=== PATIENT | female | born 1975 | race Caucasian/White ===

== ENCOUNTER 2025-04-30 13:51 | Outpatient (AMB) | payer MEDICAID, SELFPAY ==
--- NOTE | 2025-04-30 14:07 | AMB.GYNCLNOT ---
Vital Signs 04/30/25 14:08 Height 1.5 m Height Method Stated Weight 77.111 kg Weight Measurement Method Standing Scale BMI 34.3 BP 121/80 Blood Pressure Source Automatic Cuff Blood Pressure Location Right Upper Arm Position Sitting Respiration 18 Pulse 67 Pulse Source Monitor Temp 98.7 F Temp Source Temporal Artery Scan Pulse Oximetry (%) 97 Oxygen Delivery Method Room Air Allergies/Home Meds Allergies & Medications Allergies No Known Allergies Allergy (Verified 04/30/25 14:08) Medication Reconciliation No Known Home Medications 04/30/25 [History Confirmed 04/30/25] Intake Visit Data Collection New Patient or Established: New Patient (never been to [facility]) 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 Seen by Clinical Staff ONLY (RN/MA): No Director Of Strategic Sourcing Required: No Do You Feel Safe at Home: Yes Authorities Contacted: N/A PCP or OBGYN visit in last 3 months: No Hx Now: No Are you currently on any form of Control: No Last menstrual period: 02/20/25 Pain Present Currently: No Pain Scale Used: Garcia-Kerr/Numerical Pain scale:: 0 Smoking Status Smoking Status: Never smoker Immunizations Flu Vaccine in the Last 12 Months: No Flu Vaccine Exclusion Criteria: No Exclusion Criteria 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 1. Little interest or pleasure in doing things: not at all 2. Feeling down, depressed, or hopeless: not at all Total score: 0 PHQ-9 3. Trouble falling or staying asleep, or sleeping too much: Not at all 4. Feeling tired or having little energy: Not at all 5. Poor appetite or overeating: Not at all 6. Feeling bad about yourself - or that you are a failure or have let yourself or your family down: Not at all 7. Trouble concentrating on things, such as reading the newspaper or watching television: Not at all 8. Moving or speaking so slowly that other people could have noticed? - Or the opposite - being so fidgety or restless that you have been moving around a lot more than usual: not at all 9. Thoughts that you would be better off or of hurting yourself in some way: Not at all Total score: 0 If you checked off any problems, how difficult have these problems made it for you to do your work, take care of things at home, or get along with other people?: not difficult at all Source: Developed by Drs. Blair Braden, Kaylee Chapman, Perez Ventura and colleagues, with an educational jessie from [employer]. 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 Patient was referred by her primary care and [facility]. Patient is seen at that clinic for chronic hypertension. She takes lisinopril 10 mg daily. She also is taking Provera to help with heavy periods. Her previous MANAGER FIELD SALES Dr. Camp has been managing her heavy menses. Patient denies social habits. And she denies surgeries. She states that she had a abnormal Pap 8 years ago but since then they have been normal. She has no interval MANAGER FIELD SALES complaints Review of Systems Review of Systems Systems Reviewed: All systems reviewed, normal except as documented Exam Narrative Physical exam: Euthyroid. Both breasts soft symmetrical. No skin changes no masses palpated no nipple discharge. Abdomen is soft and nontender. No masses palpated. Perineum is clean no lesions noted. Vagina pink no abnormal discharge noted parous cervix with no inflammation and no lesions. Uterus normal size and shape mobile and nontender and adnexa was normal no masses palpated Office Procedures OBC Clinic LOC & Office Proc's Nursing/Assessment Patient Status: Initial/New Patient OB Clinic Nursing Assessment: Medication Reconciliation, Update PMH in EMR and Vital Signs OB Clinic Coordination of Care: Complex Care and Chronic Disease 1-5, Education Complex Pt/Fam, Consent,records obtained, informed consent, Lab and Imaging orders, Results/Orders obtained and Staff clarify orders Miscellaneous Interventions: Pelvic/Pap Smear Set up New Patient Charge New Patient Point Assignment: 1129 New Patient Point Charge: SILVER DESIGNER Level 4 ([id number]) In Clinic Bedside tests/procedures Pap Smear: Yes Assessment & Plan Diagnosis / Problem List (1) Encounter for Papanicolaou smear of vagina as part of routine gynecological examination: Status: Acute Plan Pap smear today. Discussed self breast exam. And diet regular exercise. Patient will follow-up with her primary care to manage her high blood pressure. And she is also going to follow-up with Dr. Camp for management of her heavy menses with Provera. Additional Plan Follow Up: 5 Years (pap) COUNTERINTELLIGENCE/HUMINT SPECIALIST: Papsmear Pap Smear Procedure Pre-op diagnosis general: pap smear Post-op diagnosis procedure note: Same Chaparone in room during procedure?: No Procedure position: lithotomy (dorsal lithotomy) Speculum inserted, cervix visualized: Yes (Parous cervix. No lesions noted no discharge or abnormality. Uterus is no) Cervical appearance: normal Collection method: broom type device Specimen placed in liquid-based cytology medium: Yes (labeled) Complications: No Patient tolerated procedure well: Yes Follow up pending results: phone call Procedure Notes:: Patient tolerated procedure well. No complaints of pain during the procedure. No abnormal bleeding Papsmear completed: yes
[2025-04-30 14:08] VITALS: BP 121/80; PULSE 67; RESP 18; TEMP 37.1; O2SAT 97; BMI 34.3
== END 2025-04-30 14:42 | disposition home or self-care (01) ==
LOC: HODSOBC 13:51
PROVIDERS: Supervising Provider Advanced Practice Midwife; Visit Provider Advanced Practice Midwife
DX: Z01.419 Encounter for gynecological examination (general) (routine) without abnormal findings (principal)
CPT/HCPCS: 99204; Q0091; G0463

== ENCOUNTER 2025-05-15 14:10 | Outpatient (AMB) | payer MEDICAID, SELFPAY ==
--- NOTE | 2025-05-15 14:56 | AMB.GYNCLNOT ---
Vital Signs 05/15/25 14:58 Height 1.5 m Height Method Stated Weight 77.564 kg Weight Measurement Method Standing Scale BMI 34.4 BP 139/85 H Blood Pressure Source Automatic Cuff Blood Pressure Location Left Upper Arm Position Sitting Respiration 14 Pulse 61 Pulse Source Monitor Temp 97.9 F Temp Source Oral Pulse Oximetry (%) 96 Oxygen Delivery Method Room Air Allergies/Home Meds Allergies & Medications Allergies No Known Allergies Allergy (Verified 05/15/25 14:59) Medication Reconciliation medroxyprogesterone 10 mg tablet 10 mg PO QDAY 14 days #14 tabs 05/15/25 [Rx] Intake Visit Data Collection New Patient or Established: Established Patient (seen at [facility] within 3 years) Reason for Visit:: PROVERA FOLLOW UP Consent obtained for Telemed Visit: No Seen by Clinical Staff ONLY (RN/MA): No [employer] Required: No Do You Feel Safe at Home: Yes Authorities Contacted: N/A PCP or OBGYN visit in last 3 months: Yes Hx Now: No Are you currently on any form of Control: Yes Last menstrual period: 05/08/25 Pain Present Currently: No Pain Scale Used: Garcia-Kerr/Numerical Pain scale:: 0 Smoking Status Smoking Status: Never smoker Immunizations Flu Vaccine in the Last 12 Months: Yes Flu Vaccine Exclusion Criteria: Already Received 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 1. Little interest or pleasure in doing things: not at all 2. Feeling down, depressed, or hopeless: not at all Total score: 0 PHQ-9 3. Trouble falling or staying asleep, or sleeping too much: Not at all 4. Feeling tired or having little energy: Not at all 5. Poor appetite or overeating: Not at all 6. Feeling bad about yourself - or that you are a failure or have let yourself or your family down: Not at all 7. Trouble concentrating on things, such as reading the newspaper or watching television: Not at all 8. Moving or speaking so slowly that other people could have noticed? - Or the opposite - being so fidgety or restless that you have been moving around a lot more than usual: not at all 9. Thoughts that you would be better off or of hurting yourself in some way: Not at all Total score: 0 Source: Developed by Drs. Blair Braden, Kaylee Chapman, Perez Ventura and colleagues, with an educational jessie from [employer]. Depression screen completed yes Social History Living Situation History Lives With: Family Housing: House Tobacco History Smoking Status: Never smoker Second Hand Smoke Exposure: No Alcohol History Alcohol Intake: Never Domestic Abuse History Do You Feel Safe at Home: Yes History of Present Illness HPI Narrative 49 years old on cyclic Provera for bleeding / missed period in March 2025 and in April was 7 days / takes 2 weeks on and 2 weeks off on Provera / Plan labs for menopause evaluation and follow up in 3 months Review of Systems Review of Systems Systems Reviewed: All systems reviewed, normal except as documented Exam General Limitations: no limitations General Appearance: alert and cooperative Office Procedures OBC Clinic LOC & Office Proc's Nursing/Assessment Patient Status: Established Patient OB Clinic Nursing Assessment: Medication Reconciliation, Update PMH in EMR and Vital Signs OB Clinic Coordination of Care: Complex Care and Chronic Disease 1-5, Consent,records obtained, informed consent, Education Simp Pt/Fam, 1 Ins Authorization, Lab and Imaging orders, Results/Orders obtained and Staff clarify orders Established Patient Charge Established Patient Point Assignment: 120 Established Patient Point Charge: EP Level 4 (120-155) Assessment & Plan Diagnosis / Problem List (1) Abnormal perimenopausal bleeding: Status: Acute Additional Plan Plan labs for menopause evaluation and follow up in 3 months / continue cyclic Provera x 3 months / 2 weeks on and 2 weeks off
[2025-05-15 14:58] VITALS: BP 139/85; PULSE 61; RESP 14; TEMP 36.6; O2SAT 96; BMI 34.4
== END 2025-05-15 15:58 | disposition home or self-care (01) ==
LOC: HODSOBC 14:10
PROVIDERS: Supervising Provider Obstetrics & Gynecology; Visit Provider Obstetrics & Gynecology
DX: N92.4 Excessive bleeding in the premenopausal period (principal)
CPT/HCPCS: 99214; G0463